=== PATIENT | female | born 1970 | race Caucasian/White ===

== ENCOUNTER 2020-04-06 13:24 | Inpatient (IN) | payer BC ==
[~2020-04-06] VITALS: Ht 165.1 cm; Wt 93.4 kg
[~2020-04-06 13:24] MED LIST: AUGMENTIN250 MG/5 M PO; CONTRAVE ER 8-1 EACH PO; DIFLUCAN100 MG PO; FLORASTOR250 MG PO; KEPPRA 500 MG500 MG PO; KEPPRA500 MG PO; LOVENOX100 MG/1 M SQ; MUCINEX600 MG PO; NORCO 5-325 TA1 EACH PO
[2020-04-06 14:19] LABS: HEMOGLOBIN 9.5 gm/dl (12.3-15.3); RED BLOOD COUNT 2.92 M/UL (4.00-5.10); WHITE BLOOD COUNT 6.2 K/UL (4.5-11.0)
[2020-04-06 14:42] LABS: BUN/CREATININE RATIO 17 (0-10)
[2020-04-06] MEDS ORDERED: VENTOLIN HFA 66.7 GM INH (16:55)
[2020-04-06] MEDS ORDERED: NORCO 5-325 TA1 EACH PO (16:57)
[2020-04-06] MEDS ORDERED: DEXAMETHASONE2 MG PO (16:58)
[2020-04-06] MEDS ORDERED: THORAZINE 25 MG25 MG PO (16:59)
[2020-04-06] MEDS ORDERED: TRANSDERM-SCOP1 EACH TOP (17:00)
[2020-04-06] MEDS ORDERED: PHENERGAN 25 MG25 M1 PO (17:01)
[2020-04-06] MEDS ORDERED: DESYREL 50 MG T50 MG PO (17:01)
[2020-04-06] MEDS ORDERED: ZESTRIL5 MG PO (17:02)
[2020-04-06] MEDS ORDERED: BUTALB-ACETAMI1 EAC1 PO (17:02)
[2020-04-06] MEDS ORDERED: NEURONTIN300 MG PO (17:02)
[2020-04-06] MEDS ORDERED: PROTONIX40 MG PO (17:03)
[2020-04-06] MEDS ORDERED: KLONOPIN0.5 MG PO (17:03)
[2020-04-07 03:41] LABS: HEMOGLOBIN 8.5 gm/dl (12.3-15.3); RED BLOOD COUNT 2.63 M/UL (4.00-5.10)
[2020-04-07 04:17] LABS: BUN/CREATININE RATIO 12 (0-10)
[2020-04-07 09:45] LABS: HEMOGLOBIN 8.1 gm/dl (12.3-15.3); RED BLOOD COUNT 2.48 M/UL (4.00-5.10); WHITE BLOOD COUNT 5.2 K/UL (4.5-11.0)
[2020-04-08 04:08] LABS: HEMOGLOBIN 8.8 gm/dl (12.3-15.3); RED BLOOD COUNT 2.71 M/UL (4.00-5.10); WHITE BLOOD COUNT 4.7 K/UL (4.5-11.0)
[2020-04-08 04:41] LABS: BUN/CREATININE RATIO 11 (0-10)
[2020-04-08 16:10] LABS: HEMATOCRIT 23.3 % (34.0-46.6)
[2020-04-09 04:30] LABS: HEMOGLOBIN 8.5 gm/dl (12.3-15.3); RED BLOOD COUNT 2.62 M/UL (4.00-5.10); WHITE BLOOD COUNT 5.7 K/UL (4.5-11.0)
[2020-04-09 04:53] LABS: BUN/CREATININE RATIO 6 (0-10)
--- NOTE | 2020-04-13 07:45 | NUR ---
CALLED BY OCCASIONAL BABYSITTER AND TOLD PT'S HEARTRATE 33. UPON ENTERING ROOM, FAMILY AT BEDSIDE AND NO VISIBLE RESP NOTED. ATTEMTPTED TO LISTEN FOR HEARTBEAT X 2 NURSES WITHOUT SUCCESS. NO RESP NOTED. FAMILY AWARE. AIRVO REMOVED PER THEIR REQUEST. O2 SAT MONITOR REMOVED PER THEIR REQUEST. TELE MONITOR IN PLACE. HEARTRATE 0 AT THIS TIME. NOTIFIED.
--- NOTE | 2020-04-13 13:04 | NUR ---
0815 - , DAUGHTER AND OTHER FAMILY AT BEDSIDE. 0830 - COUSIN / MEDICAL POA - [facility] STARR, [facility] 0920 - [facility] NOTIFIED PER PROTOCOL, PT RULED OUT FOR DONATION. SPOKE WITH MICKEY. REF #[id number] - POSTMORTEM CARE PROVIDED. IVS AND F/C REMOVED 1010 - [facility] NOTIFIED 1030 - [facility] HERE TO GET REMAINS. FAMILY REMAINED AT BEDSIDE TIL PT LEFT BUILDING
== END 2020-04-13 09:35 | disposition expired | DRG 177 ==
LOC: ER1 13:24 → M/S 16:26 → CDU 16:26 → M/S 22:34
PROVIDERS: Family Medicine; Internal Medicine Hematology & Oncology; Physician Assistant Medical; ADMIT Internal Medicine Infectious Disease
DX: J69.0 Pneumonitis due to inhalation of food and vomit (principal); J96.01 Acute respiratory failure with hypoxia; I26.99 Other pulmonary embolism without acute cor pulmonale; C71.7 Malignant neoplasm of brain stem; I69.354 Hemiplegia and hemiparesis following cerebral infarction affecting left non-dominant side; I82.4Z2 Acute embolism and thrombosis of unspecified deep veins of left distal lower extremity; Z20.822 Contact with and (suspected) exposure to COVID-19; Z51.5 Encounter for palliative care; I69.398 Other sequelae of cerebral infarction; Z90.49 Acquired absence of other specified parts of digestive tract; R13.10 Dysphagia, unspecified; Z88.5 Allergy status to narcotic agent; D53.9 Nutritional anemia, unspecified; G40.909 Epilepsy, unspecified, not intractable, without status epilepticus
CPT/HCPCS: 36415; 36600; 70551; 71045; 80048; 80053; 82550; 82553; 82607; 82747; 82803; 83540; 83550; 83605; 83615; 83735; 83874; 83880; 83921; 84484; 85025; 85027; 85610; 85730; 87040; 87086; 92610; 93005; 94640; 94760; 96365; 96366; 96367; 96372; 96375; 96376; 99285; C9113; J1100; J1335; J1650; J1953; J2060; J2270; J2405; J2543; J2550; J2765; J3480; U0002